=== PATIENT | female | born 1970 | race Two or more races ===

== ENCOUNTER 2019-05-21 07:14 | Day surgery (SDC) | payer OTHER | END 2019-05-21 10:50 | disposition home or self-care (01) | LOC: AMB-ENDOS 07:14 | DX: K63.5 Polyp of colon (principal); K64.8 Other hemorrhoids ==

== ENCOUNTER 2020-01-02 08:15 | Day surgery (SDC) | payer OTHER ==
[~2020-01-02 08:15] MED LIST: NORVASC5 MG PO
[2020-01-02] MEDS ORDERED: PERCOCET 5-3251 EACH PO (11:13)
== END 2020-01-02 15:45 | disposition home or self-care (01) ==
LOC: CIR.AMB 08:15
PROVIDERS: ATTEND Surgery
DX: K38.8 Other specified diseases of appendix (principal); N70.11 Chronic salpingitis; Z20.828 Contact with and (suspected) exposure to other viral communicable diseases

== ENCOUNTER 2020-08-31 13:00 | Inpatient (IN) | payer OTHER ==
[~2020-08-31] VITALS: Ht 149.9 cm; Wt 72.6 kg
[~2020-08-31 13:00] MED LIST changes: +PERCOCET 5-3251 EACH PO
== END 2020-09-04 17:56 | disposition home or self-care (01) | DRG 743 ==
LOC: OB/GYN 09-02 05:00 → O/R 09-02 05:00 → OB/GYN 09-02 10:43 → SURH 09-02 10:45 → OB/GYN 09-04 17:56
PROVIDERS: ADMIT Specialist; ATTEND Specialist
PROC: 0UT20ZZ Resection of Bilateral Ovaries, Open Approach (ICD-10-PCS; 2020-09-02)
PROC: 0UB60ZZ Excision of Left Fallopian Tube, Open Approach (ICD-10-PCS; 2020-09-02)
PROC: 0DNW0ZZ Release Peritoneum, Open Approach (ICD-10-PCS; 2020-09-02)
PROC: 0TN70ZZ Release Left Ureter, Open Approach (ICD-10-PCS; 2020-09-02)
PROC: 0TN60ZZ Release Right Ureter, Open Approach (ICD-10-PCS; 2020-09-02)
PROC: 0UT90ZZ Resection of Uterus, Open Approach (ICD-10-PCS; principal; 2020-09-02 10:45)
DX: D25.1 Intramural leiomyoma of uterus (principal); D25.2 Subserosal leiomyoma of uterus; N83.201 Unspecified ovarian cyst, right side; N83.292 Other ovarian cyst, left side; N83.291 Other ovarian cyst, right side; N72 Inflammatory disease of cervix uteri; N80.0 Endometriosis of uterus; K57.30 Diverticulosis of large intestine without perforation or abscess without bleeding